=== PATIENT | female | born 1955 | race Caucasian/White ===

== ENCOUNTER → 2024-07-02 09:24 | Outpatient (REF) | payer OTHER, SELFPAY | LOC: HWRCS 09:24 | PROVIDERS: ATTENDING PHYSICIAN Internal Medicine Interventional Cardiology; FAMILY PHYSICIAN Family Medicine | DX: R07.89 Other chest pain (principal) | CPT/HCPCS: 93306 ==

== ENCOUNTER → 2024-07-05 08:24 | Outpatient (REF) | payer OTHER, SELFPAY | LOC: HWRCS 08:24 | PROVIDERS: ATTENDING PHYSICIAN Internal Medicine Interventional Cardiology; FAMILY PHYSICIAN Family Medicine | DX: R07.89 Other chest pain (principal) | CPT/HCPCS: 78452; 93017; A9500; J2785 ==